=== PATIENT | female | born 1950 | race Caucasian/White ===

== ENCOUNTER 2021-08-07 08:36 | Outpatient (CLI) | payer MEDICARE, SELFPAY ==
--- NOTE | 2021-08-06 14:20 | FLU_PTH ---
PATIENT: JORGE PENN LOC: [facility] U#:[id number] AGE/SX: 71/F ROOM: RE08/07/[address]: Dr. Elias Monson MD : 1950 BED: DIS: 08/07/2021 SPEC #: [id number] RECD: 08/07/21 08:01 STATUS: SALVADOR LEEANNA #: [id number] DAVID: 08/06/21 14:[address]: Elias Monson DEPT: CYTOLOGY RECD BY: July Castro ENTERED: 08/07/21 11:06 SP TYPE: Fluid OTHR DR: LOUANN Gross Tissues: A - Thyroid gland, NOS B - Thyroid gland, NOS Procedures: Special Stain Group II Surgery Specimen Level IV Cytospin Fluid Cytology Other HEADER OPERATION: Right thyroid, fine needle aspiration PRE-OP DIAGNOSIS: Multiple thyroid nodules TISSUE SUBMITTED: A - FNA, right mid thyroid nodule fluid, B - FNA, right mid thyroid nodule x4 slides DIAGNOSIS CYTOLOGY A. Right mid thyroid nodule fluid, fine needle aspiration (cytospin and cell block): A few clusters of follicular cells and macrophages are noted. B. Right mid thyroid nodule, fine needle aspiration (smears): Atypical follicular cells of undetermined significance. Adequate for evaluation. See comment. SJ:rg 08/10/2021 COMMENT B. Correlation with clinical, radiologic findings and appropriate follow up are necessary. Multi-gene next-generation sequencing panel is recommended for this lesion. Please make reference to previous specimen ([id number]), right middle lobe thyroid nodule fluid, FNA with diagnosis of a few clusters of follicular cells and macrophages are noted and right mid thyroid nodule, FNA with diagnosis of atypical follicular cells of undetermined significance. Case has been reviewed in consultation with Dr. Rivera who concurs with the above diagnosis. IDC:AM CYTOLOGY STUDY Slides are reviewed. CYTOLOGY GROSS A - Received is 40 ml of red cloudy fluid labeled with the patient's name and and designated per the requisition as right mid thyroid. Submitted for cytology preparation including cell block. B - Received are four smears labeled with the patient's name and designated per the requisition as right mid thyroid nodule. Submitted for staining. / aaron 08/07/2021 TC:5 CPT: 30966, 67640 x2
== END 2021-08-07 23:59 | disposition home or self-care (01) ==
PROVIDERS: PCP Physician Assistant; Referring Provider Surgery; Visit Provider Surgery
DX: E04.1 Nontoxic single thyroid nodule (principal)
CPT/HCPCS: 88108; 88161; 88305; 88313

== ENCOUNTER 2021-09-03 13:30 | Outpatient (CLI) | payer MEDICARE, SELFPAY ==
--- NOTE | 2021-09-03 | FLU_PTH ---
PATIENT: JORGE PENN LOC: [facility] U#:[id number] AGE/SX: 71/F ROOM: RE09/03/[address]: Dr. Elias Monson MD : 1950 BED: DIS: 09/03/2021 SPEC #: [id number] RECD: 09/04/21 13:15 STATUS: SALVADOR LEEANNA #: [id number] DAVID: 09/03/21 00:[address]: Elias Monson DEPT: CYTOLOGY RECD BY: Marcellus Noguera ENTERED: 09/07/21 13:16 SP TYPE: Fluid OTHR DR: LOUANN Gross Tissues: A - Thyroid gland, NOS B - Thyroid gland, NOS Procedures: Special Stain Group II Surgery Specimen Level IV Cytospin Fluid HEADER OPERATION: Right thyroid fine needle aspiration PRE-OP DIAGNOSIS: Right thyroid nodule TISSUE SUBMITTED: A ? Right thyroid nodule fluid, B ? Right thyroid nodule x4 slides DIAGNOSIS CYTOLOGY A. Right thyroid nodule fluid, fine needle aspiration (cytospin and cell block): Rare atypical follicular cells of undetermined significance. B. Right thyroid nodule, fine needle aspiration (smears): Atypical follicular cells of undetermined significance ([place] category III). Adequate for evaluation. See comment. LISA:aaron 09/07/2021 COMMENT Follicular cells also show focal Hurthle features. Correlation with clinical, radiologic findings and appropriate follow up are necessary. The specimen is sent for Afirma study and results will be reported as an addendum. CYTOLOGY STUDY Slides are reviewed. CYTOLOGY GROSS A - Received is 30 ml of red cloudy fluid labeled with the patient's name and and designated per the requisition as right thyroid nodule. Submitted for cytology preparation including cell block. B - Received are four smears labeled with the patient's name and designated per the requisition as right thyroid nodule. Submitted for staining. / aaron 09/04/2021 TC:5 CPT: 39509, 68505 x2
== END 2021-09-03 23:59 | disposition home or self-care (01) ==
LOC: LAB 09-07 13:05
PROVIDERS: PCP Physician Assistant; Visit Provider Surgery
DX: E04.1 Nontoxic single thyroid nodule (principal)
CPT/HCPCS: 88108; 88305; 88313

== ENCOUNTER → 2021-10-22 | Outpatient (CLI) | payer MEDICARE, SELFPAY ==
--- NOTE | 2021-10-21 | FLU_PTH ---
PATIENT: JORGE PENN LOC: [facility] U#:[id number] AGE/SX: 71/F ROOM: RE10/22/[address]: Dr. Elias Monson MD : 1950 BED: DIS: 10/22/2021 SPEC #: [id number] RECD: 10/22/21 06:56 STATUS: SALVADOR LEEANNA #: [id number] DAVID: 10/21/21 00:[address]: Elias Monson DEPT: CYTOLOGY RECD BY: July Castro ENTERED: 10/22/21 09:20 SP TYPE: Fluid OTHR DR: LOUANN Gross Tissues: A - Thyroid gland, NOS B - Thyroid gland, NOS C - Thyroid gland, NOS D - Thyroid gland, NOS Procedures: Special Stain Group II Surgery Specimen Level IV Cytospin Fluid Cytology Other HEADER OPERATION: Left thyroid fine needle aspiration PRE-OP DIAGNOSIS: Multiple thyroid nodules TISSUE SUBMITTED: A - Left upper pole thyroid nodule fluid, B - Left upper pole thyroid nodule x4 slides, C - Left inferior thyroid nodule fluid, D - Left inferior thyroid nodule x4 slides DIAGNOSIS CYTOLOGY A. Left upper pole thyroid nodule fluid, fine needle aspiration (cytospin and cell block): Negative for malignant cells. B. Left upper pole thyroid nodule, fine needle aspiration (smears): Consistent with benign follicular nodule ([place] category II). Adequate for evaluation. C. Left inferior thyroid nodule fluid, fine needle aspiration (cytospin and cell block): Negative for malignant cells. D. Left inferior thyroid nodule, fine needle aspiration (smears): Consistent with benign follicular nodule ([place] category II). Adequate for evaluation. SJ:aaron 10/23/2021 COMMENT Correlation with clinical, radiologic findings and appropriate follow up are necessary. Please make reference to previous specimens ([id number]) right mid thyroid nodule, FNA with diagnosis of ?atypical follicular cells of undetermined significance? and ([id number]) right thyroid nodule, FNA with diagnosis of ?atypical follicular cells of undetermined significance.? CYTOLOGY STUDY Slides are reviewed. CYTOLOGY GROSS A - Received is 20 ml of red cloudy fluid labeled with the patient's name and and designated per the requisition as left upper pole thyroid nodule. Submitted for cytology preparation including cell block. B - Received are four smears labeled with the patient's name and designated per the requisition as left upper pole thyroid nodule. Submitted for staining. C - Received is 20 ml of red cloudy fluid labeled with the patient's name and and designated per the requisition as left inferior thyroid nodule. Submitted for cytology preparation including cell block. D - Received are four smears labeled with the patient's name and designated per the requisition as left inferior thyroid nodule. Submitted for staining. / aaron 10/22/2021 TC:5 CPT: 09198 x4, 90301 x2
== END | disposition home or self-care (01) ==
LOC: LABSPEC 07:47
PROVIDERS: PCP Physician Assistant; Visit Provider Surgery
DX: E04.2 Nontoxic multinodular goiter (principal)
CPT/HCPCS: 88108; 88161; 88305; 88313

== ENCOUNTER 2021-12-04 06:01 | Day surgery (SDC) | payer MEDICARE, SELFPAY ==
--- NOTE | 2021-12-04 | IMM_PTH ---
PATIENT: JORGE PENN [place] [facility] [place][id number] AGE/SX: 71/F ROOM: RE12/04/[address]: Dr. Elias Monson MD : 1950 BED: DIS: 12/04/2021 SPEC #: [id number] RECD: 12/09/21 12:19 STATUS: SALVADOR REBecky #: [id number] DAVID: 12/04/21 00:[address]: Elias Monson DEPT: IMMUNOHISTOCHEMISTRY RECD BY: Deysi Madrid ENTERED: 12/09/21 12:21 SP TYPE: IMMUNO OTHR DR: LOUANN Gross Tissues: B - Thyroid gland, NOS Procedures: CK19 (initial) CD56 (add) CK19 (add) GAL-3 (add) HBME (add) PHYSICIAN & INSTITUTION [place] [id number] SPECIMEN INFORMATION: Tissue Source: B ? Right lateral thyroid lobe and isthmus Clinical Info: Multiple thyroid nodules Specimen Number: [id number] B8, B12 & B14 CPT code: 52975, 85638 x11 METHODOLOGY: Deparaffinized sections of prefer/formalin-fixed tissue or PAP/DQ stained slides are incubated with monoclonal/polyclonal antibodies/oligonucleotide probes. Localization is made via biotin free immunoperoxidase method. Appropriate controls are performed and reacted as expected. Results on target cell population are indicated in the following table: RESULTS: ANTIBODY / CLONE RESULT Block B8 CK19 (A53-B/A2.26) negative HBME1 (HBME-1) positive, focal GAL3 (9C4) negative CD56 (123C3.D5) positive Block B12 CK19 (A53-B/A2.26) positive HBME1 (HBME-1) positive GAL3 (9C4) positive CD56 (123C3.D5) negative Block B14 CK19 (A53-B/A2.26) positive HBME1 (HBME-1) positive GAL3 (9C4) positive CD56 (123C3.D5) negative These tests were developed and their performance characteristics determined by [facility]. They may not have been cleared or approved by the U.S. Food and Drug Administration. The FDA has determined that such clearance or approval is not necessary. The above immunohistochemical/dualISH markers are ordered and reviewed by the Pathologist. INTERPRETATION: B. Right lateral thyroid lobe and isthmus: Papillary thyroid carcinoma, follicular variant, encapsulated (blocks 12 & 14). Hyperplastic nodules (block 8). See comment. SJ:aaron 12/17/2021 Comment: The specimen is sent to [facility] for expert opinion, reviewed by Dr. Tracy and the above diagnosis is rendered. The complete report is viewable in the patient's EMR.
--- NOTE | 2021-12-04 | PARA_PTH ---
PATIENT: JORGE PENN LOC: [facility] [place] U#:[id number] AGE/SX: 71/F ROOM: RE12/04/[address]: Dr. Elias Monson MD : 1950 BED: DIS: 12/04/2021 SPEC #: [id number] RECD: 12/04/21 09:33 STATUS: SALVADOR LEEANNA #: [id number] DAVID: 12/04/21 00:[address]: Elias Monson DEPT: SURGICAL PATHOLOGY RECD BY: Deysi Madrid ENTERED: 12/04/21 10:15 SP TYPE: PARATHY OTHR DR: LOUANN Gross Tissues: A - Parathyroid B - Thyroid gland, NOS Procedures: Decalcification bone/plaque Frozen Section (charge) Surgery Specimen Level IV Surgery Specimen Level V HEADER OPERATION: Thyroid lobectomy with isthmusectomy and intraoperative nerve PRE-OP DIAGNOSIS: Multiple thyroid nodules TISSUE SUBMITTED: A ? Parathyroid ? rule out right inferior parathyroid, FS, B ? Right lateral lobe and isthmus, stitch hickman superior FROZEN SECTION DIAGNOSIS A. Right inferior perithyroidal tissue, biopsy: Fibrofatty tissue. AM:aaron 12/04/2021 MICROSCOPIC DIAGNOSIS A. Right inferior parathyroid tissue, biopsy: A fragment of fibrofatty tissue. B. Right lateral lobe and isthmus, thyroid lobectomy with and isthmusectomy: Papillary thyroid carcinoma, follicular variant, encapsulated (2 cm in greatest dimension). Focal capsular invasion is seen. Resection margins are negative for tumor. Multiple hyperplastic thyroid nodules. One negative lymph node. One normal appearing parathyroid gland. See cancer summary in the comment section. SJ:aaron 12/17/2021 COMMENT B. Immunohistochemistry ([id number]) supports the above diagnosis. Tumor also show extensive calcifications. The specimen is sent to [facility] for expert opinion, reviewed by Dr. Tracy and the above diagnosis is rendered. The complete report is viewable in the patient's EMR. THYROID CANCER SUMMARY Procedure: Thyroid lobectomy and isthmusectomy Tumor Focality: Unifocal Tumor Site: Right lobe Tumor Size: 2 x 1.5 x 1 cm Histologic Type: Papillary carcinoma, follicular variant, encapsulated with tumor capsule invasion. Margins: Margins uninvolved by invasive carcinoma. The tumor is <0.1 cm away from the closest anterior and posterior margin. Angiolymphatic invasion: Not identified Perineural Invasion: Not identified Extrathyroidal Extension: Not identified Regional Lymph Nodes: Number of lymph nodes Examined: 1 Number of Lymph nodes involved: 0 Node Levels Involved: Level 6, perithyroidal Distant metaphysis: Not applicable Additional Pathologic Findings: Hyperplastic nodules with Hurthle cell features. - Unremarkable parathyroid gland, block 1, superior pole Ancillary Studies: Please refer to [facility] [id number] PATHOLOGIC STAGE: pT1b pN0 pMx The above summary is in compliance with [employer] [place] [employer] (CAP) Cancer Protocols Checklist and [place] [employer] Committee on Cancer (AJCC), Staging Manual, 8th Ed. Please make reference to previous specimen ([id number]) right thyroid nodule, FNA with diagnosis of ?atypical follicular cells of undetermined significance? and ([id number]) right mid thyroid nodule, FNA with diagnosis of ?atypical follicular cells of undetermined significance? and ([id number]) left upper pole thyroid nodule, FNA with diagnosis of ?benign follicular nodule? and left inferior thyroid nodule, FNA with diagnosis of ?consistent with benign follicular nodule.? Case has been reviewed in consultation with Dr. Rivera who concurs with the above diagnosis. IDC:AM MICROSCOPIC DESCRIPTION Slides are reviewed. GROSS DESCRIPTION A - Received fresh for frozen section diagnosis labeled with the patient's name is a specimen designated parathyroid. The specimen consists of a piece of quintanilla soft tissue measuring 0.2 x 0.1 x 0.1 cm. The entire specimen is submitted for frozen section diagnosis in one cassette. / AM:aaron 12/04/2021 B - Received in fixative is one container labeled with the patient's name and designated right lateral lobe and isthmus, stitch hickman superior. The specimen consists of a lobectomy and isthmus specimen consisting of thyroid lobe and attached isthmus and two detached pieces of pink-red soft tissue. The entire specimen weighs 18.4 gm. The right lobe measures 5.5 x 2.5 x 2 cm and the isthmus measures 2 x 2 x 1 cm. The specimen is inked as follows: anterior surface, right lobe and isthmus ? blue, posterior surface, right lobe and isthmus ? black, isthmic resection margin ? yellow. Serial sections of the right thyroid lobe reveal a solid, quintanilla nodule in the lower pole measuring 2 x 1.5 x 1 cm. Focal area of this nodule reveals calcified cut surfaces. A few small colloidy nodules are also noted. The entire specimen is submitted in 14 cassettes as follows: 1-3 ? isthmus (cassette 1 also contains the detached pieces of tissue), 4-14 ? right lobe (cassette 4 contains most superior portion and 14 contains the most inferior portion). Cassettes 11-14 contain the nodule and cassettes 11-13 are submitted after decalcification. / LISA:aaron 12/08/2021 TC:0 CPT: 77211, 14244, 97250, 67765
[2021-12-04 06:36] VITALS: BP 158/70; PULSE 67; RESP 16; TEMP 36.5; O2SAT 99; BMI 30.4
[2021-12-04] MEDS: Lactated Ringers 1,000 ML 15 ML IV ×2 (06:42→11:16)
--- NOTE | 2021-12-04 07:18 | HP.PCM_ITS ---
History and Physical Date of Admission: 12/04/21 Date of Service:? 11/19/21 MR#: [id number] Acct: [id number] Name:JORGE MARINA Rep #: [id number] : 1950 ? ? Provider: Dr. Elias Monson MD Age/Sex:? 71/F ? ? Location: [facility] Status: Signed Intake Vital Signs ? 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 Cardiac murmur GERD (gastroesophageal reflux disease) HTN (hypertension) Multiple thyroid nodules Osteoarthritis Surgical History? History of hysterectomy (~1999) Hx of laparoscopy S/P thyroid biopsy (~08/2021) Family History? Mother Heart diseaseBrother CancerGrandmother Diabetes Social History? Smoking Status:? Never smoker HPI HPI Surgical H&P: Yes HPI: JORGE PENN, is a 71 F who presents to the office today for? multiple thyroid nodules.? Initial consultation was 08/06/2021 and at that time, patient underwent biopsy of a TI-RADS 5 nodule that measured 2.3 x 1.8 x 1.5 cm.? This returned consistent with atypia of undetermined significance.? Repeat biopsy for cytopathology as well as molecular diagnostics was recommended and patient underwent this procedure on 09/03/2021.? Cytopathology resulted atypical follicular cells of undetermined significance and was submitted for Afirma molecular testing.? This resulted thereafter as suspicious (risk of malignancy~50%) and no variant/fusion identified.? She then finally presented for FNA biopsy of left-sided thyroid nodules in the superior and inferior polar regions on 10/21/2021.? Cytopathology on both of these biopsies returned consistent with benign follicular nodule ([place] category 2).? Patient denies any interval concerns and states that she has remained active doing her yard work at home.? She has a number of questions regarding the pending procedure and what her postoperative restrictions are likely to be?particularly as it pertains to her activity and work schedule. Below is recapitulated from initial consultation: They are referred for surgical consultation from LOUANN Allan.? This was discovered on physical exam by Dr. Miller. They do not experience difficulty with swallowing (other than with pills as patient qualifies in the has been the case for her entire life).? They do not complain of a new cough (patient does state she just overcame a cough with associated with some sinus drainage but this is resolving).? They do not appreciate new voice changes.? They do not have a history of snoring/sleep apnea. Additionally, their weight has been stable and they do not have a history of weight gain/.? There is no history of recent fatigue.? They do not have a history of heat or cold intolerance.? ? Other symptoms include: No constipation, no concentration difficulties, no visual change.? They do not have a family history of thyroid disorders or endocrinopathies.? There is no history of prior radiation exposure. Previous work-up has included thyroid ultrasound.? This ultrasound documented a right thyroid lobe measuring 5.3 x 2.8 x 1.4 cm.? The isthmus measured 0.8 cm thick.? The left thyroid lobe measured 5.8 x 2.0 x 1.7 cm.? In the right lobe there is a mid polar thyroid nodule that measured 1.2 x 1.2 x 1.4 cm and was given a TI-RADS 4 rating.? Just inferior to this but still in the mid polar region, there was a 2.3 x 1.8 x 1.5 cm thyroid nodule with peripheral calcifications and given a TI-RADS 5 rating.? There were also several TI-RADS 4 rated nodules in both the left pole and the isthmus.? Follow-up ultrasound was recommended for the latter, but fine-needle aspiration was recommended for the TI-RADS 5 nodule.? An FNA has not been performed and this is the occasion for her visit today.? Other tests include: TSH 0.75 (06/25/2021) ROS General General: No weight change, appetite, fatigue, colon cancer, breast cancer or weakness HEENT HEENT: No difficulty swallowing, eye injury, eye surgery, swollen glands or hoarseness Endo Endocrine: No thyroid disease, diabetes mellitus, thyroid cancer, Hair loss, heat intolerance or cold intolerance Skin Skin: No rash or changing moles Musc Musculoskeletal: Yes arthritis; No back problems, rheumatoid arthritis, gout or joint pain Cardio Cardiovascular: Yes high blood pressure; No murmur, pacemaker, heart disease, atrial fibrillation, heart attack, heart stent, palpitations, shortness of breat with exertion or chest pain Psych Psychiatric: No depression, anxiety or hearing voices Resp Respiratory: No shortness of breath, No sleep apnea, No cough, No COPD, No asthma, No emphysema and No wheezing Gastro Gastrointestinal: No abdominal pain, No nausea or vomiting, No diarrhea, No constipation, No blood in stool, No acid reflux, No hemorrhoids, No ulcers, No gallbladder problem and No black,tarry stools Tom Hematologic: No blood thinners, No blood disorders, No bleeding, No anemia and No blood clots Neuro Neurologic: No system reviewed and no additional complaints, except as documented, No as per HPI, No abnormal gait, No abnormal hearing, No abnormal movements, No abnormal speech, No behavioral changes, No burning sensations, No confusion, No convulsions, No disequilibrium, No dizziness, No localized weakness, No frequent falls, No headache(s), No lack of coordination, No loss of vision, No memory loss, No numbness, No other visual disturbances, No radicular pain, No restless legs, No sensory deficit, No syncope, No tingling, No tremor(s), No weakness and No other Exam Const General: cooperative, healthy appearing, comfortable and no acute distress Orientation: alert, awake and oriented x3 Neck Neck: normal visual inspection Other: Asymmetrical gland with greater fullness on the right than left.? No palpable lymphadenopathy.? Nontender with palpation Assessment and Plan Assessment and Plan (1) Multiple thyroid nodules: ?Status:?Acute ?Comment: This is a 71-year-old female, euthyroid from an endocrine standpoint, who presents with multiple thyroid nodules.? She previously underwent FNA biopsy of the right midpole TI-RADS five 2.3 x 1.8 x 1.5 cm nodule which returned consistent with atypia of undetermined significance x2.? Reflex Afirma testing was ordered for the second FNA and returned suspicious and was associated with a roughly 50% risk of malignancy.? A lengthy conversation regarding the pros and cons of lobectomy versus total thyroidectomy was held and patient ultimately opted for FNA biopsy of the left-sided thyroid nodules as a means of better informing her decision.? This was undertaken during her last visit and the cytopathology result was consistent with [place] 2 on both nodules that were sampled.? Therefore, we have settled on a recommendation for right thyroid lobe ctomy with isthmusectomy.? This procedure was reviewed with Mrs. Penn?including a discussion on risk for nerve injury or temporary hypoparathyroidism.? We also discussed expectations for the postoperative phase of her recovery and when she may return to work.? I have shared with her that this will largely be dependent on how quickly she regains her mobility and for what length of time her postoperative discomfort persists.? Regarding driving, I have informed her that the limiting factor will be her ability to quickly check her blind spots if needed.? She denies any further questions and confirms that she is prepared for surgery on December 04.? We also confirmed her preadmission testing appointment on November 27. ?Plan: ? Right thyroid lobectomy with isthmusectomy using intraoperative nerve monitoring on December 04, 2021. I have examined the patient the following changes are noted: Patient had poison belen since our last visit, but confirms that this is cleared. On exam there is no signs of poison belen on the anterior neck. Patient denies any questions related to the procedure and has completed the consents appropriately. Plan to proceed for right thyroid lobectomy with isthmusectomy and intraoperative nerve monitoring as detailed above.
[2021-12-04] MEDS: Bupivacaine 0.25% 30 ML Vial (08:10)
--- NOTE | 2021-12-04 10:57 | OP.PCM_ITS ---
Report of Operation Date of Procedure: 12/04/21 Pre-Operative Diagnosis: 1. Right thyroid nodules with atypical cytology and suspicious by [facility] Post-Operative Diagnosis: Same Surgery/Procedure Performed:: Right thyroid lobectomy with isthmusectomy using intraoperative nerve monitoring Description of Surgical Findings:: ? Whitened right inferior pole thyroid nodule is firm to touch ? No grossly abnormal perithyroidal lymph nodes ? Frozen section for rule out right inferior parathyroid consistent with fibrofatty tissue ? Grossly intact right superior parathyroid tissue ? Visibly and audibly intact (by monitor) right recurrent laryngeal nerve Surgeon: Elias Monson volunteer services coordinator: Mimi Engel Type of Anesthesia: General/Supplemental Specimen's removed: 1. Frozen section rule out right inferior parathyroid (intraoperatively confirmed as fibrofatty tissue) 2. Right thyroid lobe and isthmus Drains: Not applicable Estimated Blood Loss (mL): 30 Description of Procedure: After appropriate identification in the preoperative holding area, the patient was brought to the operating room where she was positioned supine on the operating room table. Induction of general endotracheal anesthetic was begun and a NIMS tube was placed under glidescope view to confirm coaptation with the vocal cords anteriorly. Tube was then secured and the patient was positioned with a shoulder roll so that her head was in extension but supported. The Nims electrodes were placed and connected to the monitor. We had appropriate resistance showing on the monitor and tapping at the level of the cricoid produce a graphical representation of the impulse on the monitor. Patient's neck was then prepped and draped in usual sterile fashion and a formal timeout was conducted from those present. The lowest skin fold to the sternal notch was selected for incision site (this resided approximately 2 fingerbreadths cephalad to the notch). An incision was extended for 2cm on either side of midline initially, but required further extension by approximately 1 cm to the right, later in the procedure. Electrocautery was used to deepen this incision through the level of the platysma. Subplatysmal flaps were raised with the use of electrocautery and blunt dissection. The strap muscles were then divided along the medial raphe bringing us down to the level of the thyroid. Capsular attachments to the thyroid were divided with the use of LigaSure or bluntly swept away with a peanut sponge. Retractors were placed to afford visualization of the superior pole of the thyroid. The vessels of the superior pole were sequentially ligated with the use of the LigaSure device. As we moved towards the thyroid gland away from the pole vessels, we were careful to identify the superior parathyroid gland and preserve its vascular pedicle. We then moved inferiorly and divided those polar vessels with LigaSure. Identified some fatty tissue just lateral to the inferior pole, but rather tightly adherent. Concern for possible right inferior parathyroid gland I attempted to dissect this free of the thyroid capsule. Unfortunately this proved impossible since by the time I removed it from the capsule all vascular supply to the structure was ligated. Therefore, a specimen was submitted for frozen section and the balance of the structure was placed on the saline?soaked gauze for possible reimplantation. I then proceeded with further mobilization of the inferior pole as we awaited pathologic evaluation. I bluntly the remaining strap muscle fibers from the thyroid capsule and using blunt dissection parallel to the presumed course of the recurrent laryngeal nerve, exposed the tracheoesophageal groove. At about the midportion of the thyroid gland there was a pearly white structure that had a nerve appearance and, indeed, after testing this with her nerve stimulator confirmed a positive signal with good amplitude showing on the monitor. The nerve positively identified, I relieved the attachments of the thyroid gland to the underlying trachea with the use of LigaSure and electrocautery. As we again approached the nerve insertion of the cricothyroid membrane, I elected to leave a minuscule amount of thyroid tissue intact using 4-0 silk ligatures. During the course of this dissection, the frozen section returned and pathology stated that there is no thyroid nor parathyroid tissue within the specimen, but that it is rather consistent with fibrofatty tissue. I did not continue to look further for the inferior parathyroid gland as a felt I had positively identified the right superior gland and it remained grossly viable with a strong vascular pedicle. The remainder of the thyroid attachments to the trachea were then divided (either after application of a silk ligature near the nerve or with electrocautery). The recurrent laryngeal nerve signal was checked prior to the division of any thyroid tissue near its insertion. I then began taking the thyroid isthmus off the anterior surface of the trachea. In doing so I encountered a left-sided pyramidal lobe which was dissected free of the trachea with the use of electrocautery. The specimen was then transected with the LigaSure device. It was oriented with a silk suture in the superior pole of the gland and passed off the field for permanent section by pathology. Pressure was applied to the surgical cavity where there was some slight oozing. The cavity was irrigated and selective electrocautery was used to reseal a couple of vessels in both poles. The nerve was again stimulated with a good signal and a small swatch of Surgicel was placed adjacent to the nerve insertion given a very small amount of oozing at that location. External pressure was applied to the site and there appeared to be no further accumulation. Satisfied with this result, the strap muscles were closed with a running 3-0 Vicryl stitch leaving a small gap at the inferior aspect of the suture line. The platysmal flaps were closed with interrupted 3-0 Vicryl. Some additional local anesthetic was infiltrated throughout the dermis and the skin was closed in a subcuticular fashion using 4-0 Monocryl. Steri-Strips were applied. Telfa and Tegaderm were used as a dressing. The patient was then awakened from anesthetic without event and was taken to PACU for ongoing recovery. Grafts/Implants Used: Not applicable Complications None Admit VTE Documentation VTE Present on Admission: Yes VTE Mechan Device Prophylaxis: SCD's Procedures Endocrine CF Procedures [id number]: [id number] Partial thyroid excision
--- NOTE | 2021-12-04 11:04 | DCINST_ITS ---
Discharge Instructions Diet Discharge Diet: No restrictions (However recommend a liquid to soft diet initially postoperatively) Activity Discharge Activity: May Not Drive (While it remains difficult to check blind spots quickly) May shower in (days): 2 Ice area for (Minutes): 20 Lifting Restrictions: No lifting greater than 15 pounds for 2 weeks after surgery Dressing / Incision Call your doctor if your incision/area has: Continuous Slow Oozing, Sudden Increased Bleeding, Increased Pain/ Swelling, Increased Redness and Swelling at the incision site Call your doctor if you observe: Numbness or Tingling Remove Dressing in: 2 days (Please leave Steri-Strips intact until they fall off spontaneously or are taken off at your follow-up visit) Cleanse incision/area with: Soap & Water Follow Up Care Please Follow Up With: Elias Monson MD When: 7 days postop Test Results: Test results from this visit will be discussed in further detail at your follow- up appointment, if applicable. Discharge Plan Admission Primary Reason for Your Visit: Right thyroid lobectomy Attending Provider: Elias Monson Primary Care Provider: Mariel New Instructions Patient Instructions: Thyroidectomy Dc Additional Instructions / Restrictions: Please take 1 regular strength Tums if experiencing numbness or tingling of the fingertips or mouth and notify Dr. Monson's office/hospital (if after hours ( Discharge Orders/Prescriptions Prescriptions: No Action lisinopril 20 mg tablet 20 mg PO DAILY Label Comments: TAKE 1 TABLET BY MOUTH ONCE DAILY Referrals / Follow Up: Mariel New PA [Primary Care Provider] - Disposition Disposition (needs filled in before D/C Order can be placed): Home, Self Care
[2021-12-04 11:08] VITALS: BP 136/72; BP 158/70; PULSE 90; RESP 16; TEMP 36.8; O2SAT 95
[2021-12-04 11:15] VITALS: BP 123/67; BP 158/70; PULSE 85; RESP 16; O2SAT 94
[2021-12-04 11:30] VITALS: BP 133/72; BP 158/70; PULSE 78; RESP 16; O2SAT 96
[2021-12-04 11:41] VITALS: BP 128/67; BP 158/70; PULSE 76; RESP 16; TEMP 36.4; O2SAT 96
[2021-12-04 12:44] VITALS: BP 141/59; BP 158/70; PULSE 70; RESP 16; O2SAT 98
== END 2021-12-04 13:11 | disposition home or self-care (01) ==
LOC: SDC 06:06 → AC 06:11
PROVIDERS: PCP Physician Assistant; Referring Provider Surgery; Visit Provider Surgery
PROC: (CPT 60210; principal; 2021-12-04 07:15)
DX: E04.2 Nontoxic multinodular goiter (principal); I10 Essential (primary) hypertension; Z79.899 Other long term (current) drug therapy
CPT/HCPCS: 60210; 88305; 88307; 88311; 88331; 88341; 88342; J7120; J2405

== ENCOUNTER → 2022-01-14 | Outpatient (CLI) | payer MEDICARE, SELFPAY ==
[2022-01-14 08:24] LABS: Calcium,Total 8.9 mg/dL (8.5-10.1); Free T3 2.2 pg/mL (2.18-3.98); T4 Total, Thyroxin 7.8 ug/dL (4.8-13.9); Thyroid Stim Hormone (TSH) 2.34 uIU/mL (0.358-3.74)
== END | disposition home or self-care (01) ==
PROVIDERS: PCP Physician Assistant; Referring Provider Surgery; Visit Provider Surgery
DX: E04.2 Nontoxic multinodular goiter (principal); Z98.890 Other specified postprocedural states
CPT/HCPCS: 36415; 82310; 83970; 84436; 84443; 84481

== ENCOUNTER → 2023-01-06 | Outpatient (CLI) | payer MEDICARE, SELFPAY ==
--- NOTE | 2023-01-06 11:40 | US_ITS ---
STUDY: THYROID ULTRASOUND REASON FOR EXAM: Female, 72 years old. Palpable nodules TECHNIQUE: Ultrasound evaluation of the thyroid was performed with real-time and static perdomo-scale imaging. COMPARISON: None. FINDINGS: RIGHT LOBE: Previously removed. No suspicious soft tissue mass in the right thyroid bed LEFT LOBE: The left lobe of the thyroid gland measures 4.6 x 1.9 x 2.4 cm. There is a homogeneous echotexture. Carpenter'S Assistant notes 6 separate thyroid nodules. There is a solid/cystic 0.9 cm nodule. There is a 0.5 cm cyst with calcified rim. There is a 1.3cm solid nodule with calcifications and irregular borders. There is a solid 1.5 cm solid nodule, there is a 1.2 cm hypoechoic nodule with calcified rim, and a 1.3 cm solid irregular nodule with calcifications. ISTHMUS: The isthmus measures 2.2 mm. The regional lymph nodes are normal, all measure less than 1 cm in short axis dimension. US/Thyroid IMPRESSION: Normal-sized homogeneous left thyroid lobe with 6 separate nodules identified. The solid/cystic nodules well-defined and needs no additional imaging. However, the other 5 nodules are all solid with some associated suspicious characteristics such as irregular borders and associated calcifications. FNA is recommended for further evaluation. Nodules are solid or almost completely solid, hypoechoic, [id number], is lobulated or irregular and contains microcalcifications. TI-RADS points: 7. TI-RADS category: TR5. Nodules are highly suspicious. Recommend FNA evaluation. Electronically Signed: Jhony Aragon MD at 11:03 EDT ,
== END | disposition home or self-care (01) ==
LOC: US 11:38
PROVIDERS: PCP Physician Assistant; Referring Provider Surgery; Visit Provider Surgery
DX: E04.2 Nontoxic multinodular goiter (principal)
CPT/HCPCS: 76536

== ENCOUNTER → 2023-02-24 | Outpatient (CLI) | payer MEDICARE, SELFPAY ==
--- NOTE | 2023-02-24 13:40 | FLU_PTH ---
PATIENT: JORGE PENN LOC: [facility]#:[id number] AGE/SX: 72/F ROOM: RE02/24/[address]: Dr. Elias Monson MD : 1950 BED: DIS: 02/24/2023 SPEC #: [id number] RECD: 02/24/23 15:12 STATUS: SALVADOR LEEANNA #: [id number] DAVID: 02/24/23 13:[address]: lEias Monson DEPT: CYTOLOGY RECD BY: July Castro ENTERED: 02/25/23 11:32 SP TYPE: Fluid OTHR DR: LOUANN Gross Tissues: A - Thyroid gland, NOS B - Thyroid gland, NOS C - Thyroid gland, NOS D - Thyroid gland, NOS Procedures: Special Stain Group II Surgery Specimen Level IV Cytospin Fluid Cytology Other HEADER OPERATION: Fine needle aspiration, left thyroid nodules PRE-OP DIAGNOSIS: Left thyroid nodules TISSUE SUBMITTED: A - FNA left mid pole thyroid fluid, B - FNA left mid pole thyroid x4 slides, C - FNA left upper pole thyroid fluid, D - FNA left upper pole thyroid x4 slides DIAGNOSIS CYTOLOGY A. Left mid pole thyroid fluid, fine needle aspiration (cytospin and cell block): Negative for malignant cells. See comment. B. Left mid pole thyroid, fine needle aspiration (smears): Consistent with benign follicular/colloid nodule (Powers Category II). See comment. C. Left upper pole thyroid fluid, fine needle aspiration (cytospin and cell block): Consistent with benign follicular/colloid nodule (Powers Category II). Adequate for evaluation. D. Left upper pole thyroid, fine needle aspiration (smears): Consistent with benign follicular/colloid nodule (Powers Category II). Adequate for evaluation. See comment. SJ:aaron 02/28/2023 COMMENT A. The specimen shows scant colloid and rare benign follicular cells. B. The specimen is paucicellular, however, meets the minimal criteria for adequacy. D. The specimen is cellular and shows mixture of follicular cells, Hurthle cells and abundant colloid. Correlation with clinical, radiologic findings and appropriate follow up are necessary. The Powers System for thyroid diagnostic categorization was used in the evaluation of this case. Please make reference to previous specimen ([id number]), right lateral lobe and isthmus, thyroid lobectomy and isthmusectomy with diagnosis of papillary thyroid carcinoma, follicular variant and cytology specimen ([id number]), left upper pole mid thyroid nodule fluid, FNA with diagnosis of consistent with benign follicular nodule and left inferior thyroid nodule, FNA with diagnosis of consistent with benign follicular nodule. Case has been reviewed in consultation with Dr. Rivera who concurs with the above diagnosis. IDC:AM CYTOLOGY STUDY Slides are reviewed. CYTOLOGY GROSS A - Received is 15 ml of red cloudy fluid labeled with the patient's name and and designated per the requisition as left mid pole. Submitted for cytology preparation including cell block. B - Received are four smears labeled with the patient's name and designated per the requisition as left mid pole. Submitted for staining. C - Received is 15 ml of red cloudy fluid labeled with the patient's name and and designated per the requisition as left upper pole. Submitted for cytology preparation including cell block. D - Received are four smears labeled with the patient's name and designated per the requisition as left upper pole. Submitted for staining. / aaron 02/25/2023 TC:5 [facility]: 61020 x4, 79301 x2
[2023-02-24 14:40] LABS: T4 Free Direct 0.89 ng/dL (0.76-1.46); Thyroid Stim Hormone (TSH) 1.37 uIU/mL (0.358-3.74)
== END | disposition home or self-care (01) ==
PROVIDERS: PCP Physician Assistant; Referring Provider Surgery; Visit Provider Surgery
DX: E04.1 Nontoxic single thyroid nodule (principal)
CPT/HCPCS: 36415; 84439; 84443; 84481; 88108; 88161; 88305; 88313

== ENCOUNTER → 2024-03-01 | Outpatient (CLI) | payer MEDICARE, SELFPAY ==
--- NOTE | 2024-03-01 12:03 | US_ITS ---
EXAM: US SOFT TISSUES HEAD AND NECK, THYROID CLINICAL INDICATION: yearly check TECHNIQUE: Greyscale and color doppler imaging was performed of the thyroid gland. COMPARISON: 01/06/2023 FINDINGS: LEFT THYROID LOBE: The left thyroid lobe measures 4.5 x 2.4 x 2.9 cm. There is an unchanged 4 mm left thyroid lobe nodule. This is likely a cyst with densely peripheral calcification rather than a solid nodule. Regardless, given size based on TI-RADS criteria, no follow-up or FNA is indicated. 1.9 cm left thyroid nodule is unchanged. This nodule is solid or almost completely solid, hyperechoic or isoechoic, [id number], smoothly marginated and contains no echogenic foci. TI-RADS points: 3. TI-RADS category: TR3. This nodule is mildly suspicious. Recommend follow-up thyroid ultrasounds at 2 and 4 years. 1.5 cm mid left thyroid nodule is unchanged. This nodule is solid or almost completely solid, hyperechoic or isoechoic, [id number], smoothly marginated and contains no echogenic foci. TI-RADS points: 3. TI-RADS category: TR3. This nodule is mildly suspicious. Recommend follow-up thyroid ultrasounds at 2 and 4 years. 1.1 cm mid left thyroid nodule is unchanged. This nodule is solid or almost completely solid, hyperechoic or isoechoic, [id number], smoothly marginated, contains microcalcifications and is peripherally calcified. TI-RADS points: 6. TI-RADS category: TR4. This nodule is moderately suspicious. Recommend follow-up thyroid ultrasounds at 1, 2 and 4 years. RIGHT THYROID LOBE: Status post right hemithyroidectomy. No residual thyroid tissue is identified in the right thyroid bed. ISTHMUS: The thyroid isthmus measures 0.2 cm. No thyroid nodules are present. LYMPH NODES: Complex lymph node or lymph node conglomerate with lobulated margins and significant hypoechoic cortex is identified in the right neck measuring 1.9 x 0.6 x 1.1 cm. This appears similar to the prior examination. US/Thyroid IMPRESSION: 1. Status post right hemithyroidectomy. No residual thyroid tissue is identified in the right thyroid bed. 2. Complex lymph node or lymph node conglomerate with lobulated margins and significant hypoechoic cortex is identified in the right neck measuring 1.9 x 0.6 x 1.1 cm. This appears similar to the prior examination. 3. Multiple unchanged left side thyroid nodules. Recommend continued follow-up as above. Electronically Signed: Musa Montalvo DO at 17:00 EDT ,
[2024-03-01 13:18] LABS: Free T3 2.7 pg/mL (2.18-3.98); T4 Total, Thyroxin 8.3 ug/dL (4.8-13.9)
== END | disposition home or self-care (01) ==
PROVIDERS: PCP Physician Assistant; Referring Provider Surgery; Visit Provider Surgery
DX: E04.2 Nontoxic multinodular goiter (principal); C73 Malignant neoplasm of thyroid gland
CPT/HCPCS: 36415; 76536; 84436; 84443; 84481

== ENCOUNTER → 2025-02-20 | Outpatient (CLI) | payer MEDICARE, SELFPAY ==
--- NOTE | 2025-02-20 15:19 | US_ITS ---
PROCEDURE: THYROID 02/20/2025 REASON FOR EXAM: YEARLY FOLLOW UP TECHNIQUE: Procedure Code: USTHY Modality: US Procedure: THYROID COMPARISON: Thyroid ultrasound, 03/01/2024. FINDINGS: Right thyroid lobe is surgically absent. Left thyroid lobe size: 5.0 x 2.5 x 2.4 cm (was 4.5 x 2.9 x 2.4 cm). Interpolar, 2.5 x 2.3 x 1.4 cm, almost completely solid, with a smooth margin. TR 3 Interpolar, 1.3 x 1.3 x 1.0 cm, almost completely solid, with a smooth margin. TR 3. Isthmus: 3 mm US/Thyroid IMPRESSION: Recommend follow-up TR 3 nodules in 2 years. Reading Location: [place] [address]
== END | disposition home or self-care (01) ==
PROVIDERS: PCP Physician Assistant; Referring Provider Surgery; Visit Provider Surgery
DX: E04.1 Nontoxic single thyroid nodule (principal)
CPT/HCPCS: 76536

== ENCOUNTER 2025-03-28 15:13 | Outpatient (CLI) | payer MEDICARE, SELFPAY ==
--- NOTE | 2025-03-28 13:00 | CYSPIN_PTH ---
PATIENT: JORGE PENN LOC: [facility] U#:[id number] AGE/SX: 74/F ROOM: RE03/28/[address]: Dr. Elias Monson MD : 1950 BED: DIS: 03/28/2025 SPEC #: [id number] RECD: 03/28/25 14:28 STATUS: SALVADOR LEEANNA #: [id number] DAVID: 03/28/25 13:[address]: Elias Monson DEPT: CYTOLOGY RECD BY: Hilario May ENTERED: 03/29/25 09:00 SP TYPE: CYSPIN FL PAMELA DR: LOUANN Gross Tissues: A - Thyroid gland, NOS Procedures: Pap Stain (control) Special Stain Group II Cytospin Fluid HEADER OPERATION: Fine needle aspiration of left thyroid nodule PRE-OP DIAGNOSIS: Left thyroid nodule TISSUE SUBMITTED: A- Left thyroid nodule DIAGNOSIS CYTOLOGY A. Left thyroid nodule, FNA: * No malignant cells are identified * Benign (consistent with benign follicular nodule) CYTOLOGY STUDY Slides are reviewed. CYTOLOGY GROSS A. Received is 30 ml of pink-cytolyt with particles and 4 slides labeled with the patient's name and and designated per the requisition as "Left thyroid nodule." Submitted for cytology and cytospin. Mr 03/29/2025 CPT: 12746,45004
== END 2025-03-28 23:59 | disposition home or self-care (01) ==
LOC: LABSPEC 15:15
PROVIDERS: PCP Physician Assistant; Referring Provider Surgery; Visit Provider Surgery
DX: E04.1 Nontoxic single thyroid nodule (principal)
CPT/HCPCS: 88108; 88313